=== PATIENT | male | born 2000 | race Caucasian/White ===

== ENCOUNTER 2024-09-08 10:45 | Outpatient (REF) | payer SELFPAY | END 2024-09-08 10:46 | disposition home or self-care (01) | LOC: HO.HOSX 10:45 | PROVIDERS: Visit Provider Orthopaedic Surgery | DX: M25.532 Pain in left wrist (principal) | CPT/HCPCS: 73110 ==

== ENCOUNTER 2024-09-08 10:45 | Outpatient (AMB) | payer OTHER, SELFPAY ==
--- NOTE | 2024-09-08 10:47 | A.OFFVIS_ITS ---
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 Reports he was having numbness and tingling in his SF,RF and MF but has improved. Denies prior injury or hand surgery. Referred/ seen at [facility] Allergies No Known Allergies Allergy (Verified 09/08/24 10:56) HPI HPI FC-Mildly displ fx of the ulnar styloid process: Details: Eleuterio is a 24 year old right hand dominant man who presents with report of a left wrist fracture, S/P fall, DOI: 08/12/24. He was seen at [facility] and referred here. He says he is doing well overall. He has been wearing his splint almost full- time. He complains of some discomfort & soreness in his wrist, but says this is tolerable. He reports having had numbness in his middle, ring, and small fingers since his injury, but says this has mostly resolved. He also notes he had dry skin on his hand & wrist, but says he has a wood burning stove recently installed and this may be causing his dry skin. 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 He says he has been out of work for the last 3 weeks. 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 Review of Systems Const All systems reviewed & are unremarkable except as noted in HPI and below Physical Exam Vital Signs: BMI result Body Mass Index 25.8 Const General: cooperative, healthy appearing and no acute distress Orientation/consciousness: patient oriented x3 HEENT Head: Yes normocephalic and Yes atraumatic Eyes EOM: EOMs intact bilaterally Resp Effort & Inspection: normal respiratory effort and able to speak in complete sentences Cardio Jugular venous distension: no JVD Skin General skin exam: turgor normal Rashes: no rashes Neuro General: patient oriented x3 Extrem Other: Evaluation of Left Upper Extremity: The patient is alert, oriented, and in no acute distress Neuro: Sensation intact to the tips of all digits Vascular: Cap refill brisk ROM: He can make a weak fist and extend all his digits Wrist ROM: ~30 degrees pronation ~20 degrees supination ~40 degrees flexion ~30 degrees extension Pain at extremes of range of motion. DRUj stable on exam No tenderness along the fracture site No snuffbox or scaphoid tubercle tenderness Skin: No lacerations or abrasions. General: No Erythema or evidence of infection. Radiographs: 3 views of the left wrist were taken and viewed by me today in clinic. They show an ulnar styloid fracture, minimally displaced, with satisfactory fracture alignment. No distal radius, scaphoid or other fracture seen. Normal appearance of the DRUJ. Psych Appearance: grossly normal Affect: normal affect Attitude: cooperative Assessment & Plan Assessment & Plan (1) Nondisplaced fracture of styloid process of left ulna: Code(s): S52.615A - Nondisplaced fracture of left ulna styloid process, initial encounter for closed fracture Category: Medical (2) Stiffness of left wrist joint: Code(s): M25.632 - Stiffness of left wrist, not elsewhere classified Category: Medical Plan Assessment & Plan: 1. Left ulnar styloid fracture, From a fall, DOI: 08/12/24 I educated him about this condition I recommend he continue to manage this conservatively, and he is in agreement He is doing fairly well at this point, with some more generalized soreness & stiffness in his wrist from wearing his splint for the last 4 weeks. I want him out of the wrist splint to work on range of motion. He may wear it to work. He will continue to wear his velcro wrist splint when out of the house for the next 4 weeks. he will remove this at home. I discussed activity modification, he is to work on ROM exercises & strengthening exercises at home, out of his splint. I ordered OT hand therapy to work on ROM, normalizing function, and strengthening He should focus on wrist pronosupination, and he is to lift nothing heavy for the next 4 weeks. He should begin with lightweight activities and slowly increase his weight limit as tolerated. 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 He was given a note for work to return on light duty, with a 3lb weight limit for the next 4 weeks, effective 09/14/24. He will follow up in 4 week for a ROM check, no X-rays unless he has a new injury. Anticipate returning to full duty at that time. Scribed for Elizabeth Bergman MD by Vazquez Good, medical billing supervisor, on 09/08/24 at 11:05 AM, EST. Orders: Orders OT Evaluation and Treatment Today M25.632 - Stiffness of left wrist, not elsewhere classified, S52.615A - Nondisplaced fracture of left ulna styloid process, initial encounter for closed fracture XR wrist LT min 3V Today M25.532 - Pain in left wrist Coding Level of Care Code New Pt Level 4 (05390) Diagnoses Nondisplaced fracture of styloid process of left ulna S52.615A Stiffness of left wrist joint M25.632
[2024-09-08 10:55] VITALS: BMI 25.8
--- OUTSIDE RECORDS SUMMARY | 2024-09-08 11:13 | XMS_ITS | Continuity of Care Document ---
Author Organization [facility] Address [address] [place] [address]- Care Team Providers Care President Ceo & Founder Name Role Phone Not on Staff, PCP Primary Care Physician Unavail able Encounter [facility] Date(s): 08/07/24 - 09/06/24 [facility] [address] [place] [address]- Attending Physician: Brianna Murry Admitting Physician: AdmtrBrianna Referring Physician: Admtr, Ar8 Encounter Type: Triage Allergies, Adverse Reactions, Alerts No Known Allergies Immunizations Given and Recorded Vaccine Date Status Refusal Reason influenza virus vaccine, inactivated 06/20/18 Jaycob rded influenza virus vaccine, inactivated 10/03/17 Jaycob rded influenza virus vaccine, inactivated 08/01/05 Jaycob rded Human Papillomavirus Vaccine 06/20/18 Recorded Hepatitis A Pediatric Vaccine 06/20/18 Recorded Meningococcal Conjugate Vaccine 05/10/14 Recorded Varicella Virus Vaccine 07/18/12 Recorded Varicella Virus Vaccine 05/05/01 Recorded tetanus/diphtheria/pertussis, acel(Tdap) 07/18/12 Recorded Poliovirus Vaccine, Inactivated 06/05/05 Recorded Poliovirus Vaccine, Inactivated 02/03/01 Recorded Poliovirus Vaccine, Inactivated 00 Recorded Poliovirus Vaccine, Inactivated 00 Recorded diphtheria/tetanus/pertussis, acel(DTaP) 06/05/05 Recorded diphtheria/tetanus/pertussis, acel(DTaP) 05/29/02 Recorded diphtheria/tetanus/pertussis, acel(DTaP) 00 Recorded diphtheria/tetanus/pertussis, acel(DTaP) 00 Recorded diphtheria/tetanus/pertussis, acel(DTaP) 00 Recorded Measles/Mumps/Rubella Virus Vaccine 06/05/04 Recor ded Measles/Mumps/Rubella Virus Vaccine 05/29/02 Recor ded hepatitis B pediatric vaccine 02/03/01 Recorded hepatitis B pediatric vaccine 00 Recorded hepatitis B pediatric vaccine 00 Recorded Problem List No Known Problems Social History Social History Type Response Smoking Status Never (less than 100 in lifetime) entered on: 04/01/19 Sex Sex Representation Male (finding) Patient Care team information Care Team Personnel Name: Not on Staff, PCP Position: S Physician (General Medicine) Member Role: PCP Care Team Related Persons Name: ESPERANZA ALTAMIRANO Name: TAVON ALTAMIRANO Insurance Providers Guarantor name: ZOHAIB [facility] Information #: 1 Payer: [facility] Member Number: NA Policy Number: NA Group Number: NA
--- OUTSIDE RECORDS SUMMARY | 2024-09-08 11:13 | XMS_ITS | Continuity of Care Document ---
Author Organization [facility] Address [address] [place] [address]- Care Team Providers Care Seed Specialist Name Role Phone Not on Staff, PCP Primary Care Physician Unavail able Encounter [facility] Date(s): 07/20/24 - 09/06/24 [facility] [address] [place] [address]- Attending Physician: Anh Perez NP Encounter Type: Pre Office Visit Allergies, Adverse Reactions, Alerts No Known Allergies [...] Personnel Name: Not on Staff, PCP Position: [facility] Physician (General Medicine) Member Role: PCP Care Team Related Persons Name: ESPERANZA ALTAMIRANO Name: TAVON ALTAMIRANO Insurance Providers Guarantor name: ZOHAIB ALTAMIRANO Health Plan Information #: 1 Payer: [facility] Member Number: [id number] Policy Number: NA Group Number: [employer] Health Plan Information #: 2 Payer: [facility] Member Number: [id number] Policy Number: NA Group Number: NA
--- OUTSIDE RECORDS SUMMARY | 2024-09-08 11:13 | XMS_ITS | Continuity of Care Document ---
Author Organization [facility] Address [address] [place] [address]- Care Team Providers Care Orthopedics Teacher Name Role Phone Not on Staff, PCP Primary Care Physician Unavail able Encounter [facility] Date(s): 04/21/24 - 08/19/24 [facility] [address] [place], [place] [address] Attending Physician: Radha Amezquita NP Encounter Type: Pre Office Visit Allergies, [...] Personnel Name: Not on Staff, PCP Position: [facility] Physician (General Medicine) Member Role: PCP Care Team Related Persons Name: ESPERANZA ALTAMIRANO Name: TAVON ALTAMIRANO Insurance Providers Guarantor name: ZOHAIB ALTAMIRANO Health Plan Information #: 3 Payer: [employer] Member Number: [id number] Policy Number: NA Group Number: [id number] Health Plan Information #: 4 Payer: [employer] Member Number: [id number] Policy Number: NA Group Number: NA Health Plan Information #: 2 Payer: [facility] Member Number: [id number] Policy Number: NA Group Number: NA Health Plan Information #: 5 Payer: [facility] Member Number: [id number] Policy Number: NA Group Number: NA Health Plan Information #: 1 Payer: [employer] Member Number: [id number] Policy Number: NA Group Number: NA
== END 2024-09-08 11:19 | disposition home or self-care (01) ==
PROVIDERS: Visit Provider Orthopaedic Surgery
DX: S52.615A Nondisplaced fracture of left ulna styloid process, initial encounter for closed fracture (principal); M25.632 Stiffness of left wrist, not elsewhere classified
CPT/HCPCS: 99204